=== PATIENT | female | born 1950 | race Caucasian/White ===

== ENCOUNTER → 2019-05-05 12:22 | Outpatient (CLI) | payer OTHER, SELFPAY ==
--- NOTE | 2019-05-05 | DI.MG.S_ITS ---
BILATERAL DIGITAL SCREENING MAMMOGRAM 3D/2D WITH CAD: 05/05/2019 CLINICAL: Routine screening. Comparison is made to exam dated: 01/14/2017 mammogram - [facility]. The tissue of both breasts is heterogeneously dense. This may lower the sensitivity of mammography. Current study was also evaluated with a Computer Aided Detection (CAD) system. There is a mole marker on the right breast. There are mole markers on the left breast. No significant masses, calcifications, or other findings are seen in either breast. There has been no significant interval change. IMPRESSION: NEGATIVE There is no mammographic evidence of malignancy. A 1 year screening mammogram is recommended. This exam was interpreted at Station ID: [id number]. NOTE: For mammograms, a report in lay terms will be sent to the patient. Approximately 15% of breast malignancies will not be visualized mammographically. In the management of a palpable breast mass, a negative mammogram must not discourage biopsy of a clinically suspicious lesion. Electronically Signed By: Warren russell/philip:05/08/2019 17:10:40 letter sent: Normal Exam ACR BI-RADS Category 1: Negative [id number]
== END ==
PROVIDERS: PCP Nurse Practitioner Family; Visit Provider Nurse Practitioner Family
DX: Z12.31 Encounter for screening mammogram for malignant neoplasm of breast (principal); M85.851 Other specified disorders of bone density and structure, right thigh
CPT/HCPCS: 77063; 77067; 77080

== ENCOUNTER → 2020-08-20 08:05 | Outpatient (CLI) | payer OTHER, SELFPAY ==
[2020-08-20] MEDS: COVID-19 VACC #1, MRNA(MOD) 100 MCG/0.5 ML VIAL IM (08:10)
== END ==
PROVIDERS: PCP Nurse Practitioner Family; Visit Provider Internal Medicine
DX: Z23 Encounter for immunization (principal)
CPT/HCPCS: 0011A; 91301

== ENCOUNTER → 2020-09-17 07:56 | Outpatient (CLI) | payer OTHER, SELFPAY ==
[2020-09-17] MEDS: COVID-19 VACC #2, MRNA(MOD) 100 MCG/0.5 ML VIAL IM (08:10)
== END ==
PROVIDERS: PCP Nurse Practitioner Family; Visit Provider Internal Medicine
DX: Z23 Encounter for immunization (principal)
CPT/HCPCS: 0012A; 91301

== ENCOUNTER → 2021-03-05 14:41 | Outpatient (CLI) | payer OTHER, SELFPAY ==
--- NOTE | 2021-03-05 | DI.RAD.S_ITS ---
PROCEDURE: XR HIP W PEL IF DONE RT 2V INDICATIONS: right hip pain TECHNIQUE: AP pelvis with lateral view(s) of the right hip(s). COMPARISON: None. FINDINGS: Bones: No fractures or dislocations. Mild to moderate degenerative change at the right hip. No avascular necrosis of the right femoral head. Mild degenerative change at the left hip. Pelvic ring appears intact. No suspicious bony lesions. Soft tissues: The visualized bowel gas pattern is normal. No suspicious soft tissue calcifications. IMPRESSION: [id number] degenerative change of the right hip. Dictated by: Jordan Fisher M.D. on 03/05/2021 at 15:07 Approved by: Jordan Fisher M.D. on 03/05/2021 at 15:08
== END ==
PROVIDERS: PCP Internal Medicine; Referring Provider Internal Medicine; Visit Provider Internal Medicine
DX: M25.551 Pain in right hip (principal)
CPT/HCPCS: 73502

== ENCOUNTER → 2022-04-09 10:40 | Outpatient (CLI) | payer MEDICARE, OTHER, SELFPAY | PROVIDERS: PCP Family Medicine; Referring Provider Physical Medicine & Rehabilitation; Visit Provider Physical Medicine & Rehabilitation | DX: M54.16 Radiculopathy, lumbar region (principal); Z53.20 Procedure and treatment not carried out because of patient's decision for unspecified reasons ==

== ENCOUNTER 2022-10-19 10:52 | Emergency (ER) | payer MEDICARE, OTHER, SELFPAY ==
[2022-10-19] VITALS (14 sets, daily range): BP systolic 129–190; BP diastolic 60–88; PULSE 56–84; RESP 11–35; TEMP 36.6; O2SAT 97–100; BMI 24.3
--- NOTE | 2022-10-19 11:06 | DI.RAD.S_ITS ---
PROCEDURE: XR CHEST 1V INDICATIONS: chest pain TECHNIQUE: One view of the chest was acquired. COMPARISON: None. FINDINGS: Surgical changes and devices: None. Lungs and pleura: Lungs are clear. No pleural effusions or pneumothorax. Mediastinum: Mediastinal contours appear normal. Heart size is normal. Bones and chest wall: No suspicious bony lesions. Overlying soft tissues appear unremarkable. IMPRESSION: No acute cardiopulmonary pathology. Dictated by: Walker Iraheta M.D. on 10/19/2022 at 11:44 Approved by: Walker Iraheta M.D. on 10/19/2022 at 11:44
[2022-10-19 11:47] LABS: Add Manual Diff / Slide Review NO; Basophils Absolute Auto 0 /uL (0-100); Basophils Percent Auto 0.5 % (0-2); Eosinophils Absolute Auto 100 /uL (0-450); Eosinophils Percent Auto 1.2 % (2-4); Hematocrit 43.7 % (36-46); Lymphocytes Absolute Auto 1500 /uL (1100-4500); Lymphocytes Percent Auto 25.3 % (25-40); Mean Corpuscular HGB Conc 34.3 % (30-36); Mean Corpuscular Hemoglobin 32.6 PG (26-34); Mean Corpuscular Volume 94.9 fL (80-100); Monocytes Absolute Auto 600 /uL (0-900); Monocytes Percent Auto 9.7 % (3-14); Neutrophils Absolute Auto 3700 /uL (1500-7000); Neutrophils Percent Auto 63.3 % (50-75); Platelet Count 208 X10^3/uL (150-400); Red Blood Cell Count 4.61 X10^6/uL (4.0-5.2); Red Cell Distribution Width 13.4 % (11.6-14.8); White Blood Cell Count 5.9 X10^3/uL (4.5-11.0)
[2022-10-19 11:57] LABS: PTT Partial Thromboplastin Tim 30 SECONDS (26-36)
[2022-10-19 12:01] LABS: Alanine Aminotransferase 26 IU/L (<35); Albumin 4.5 g/dL (3.5-5.0); Albumin Globulin Ratio 1.3 (1.0-2.8); Alkaline Phosphatase 149 U/L (38-126); Aspartate Aminotransferase 26 IU/L (14-36); BUN Creatinine Ratio 15.8 (6-22); Bilirubin Total 0.7 mg/dL (0.2-1.3); Blood Urea Nitrogen 15 mg/dL (7-17); Calcium 9.5 mg/dL (8.4-10.2); Carbon Dioxide 23 mmol/L (22-32); Chloride 107 mmol/L (98-107); Creatine Kinase 48 U/L (30-135); Estimated Glomerular Filt Rate > 60 mL/min (>60); Globulin 3.4 g/dL (1.7-4.1); Glucose 99 mg/dL (80-110); HEMOLYSIS < 15 (0-50); Lipase 147 U/L (23-300); Magnesium 1.9 mg/dL (1.6-2.3); Potassium 3.9 mmol/L (3.4-5.1); Sodium 140 mmol/L (137-145); Total Protein 7.9 g/dL (6.3-8.2)
[2022-10-19 12:05] LABS: COVID19 -Nasal RAPID Negative (Negative)
[2022-10-19 12:13] LABS: Troponin I < 0.012 ng/mL (0.01-0.034)
[2022-10-19 13:58] LABS: Troponin I < 0.012 ng/mL (0.01-0.034)
--- NOTE | 2022-10-19 14:01 | ED_ITS ---
HPI - Chest Pain General Chief Complaint: Chest Pain Stated Complaint: Chest pain, nausea,diaphoretic Time Seen by Provider: 10/19/22 14:01 Source: patient Mode of arrival: Ambulatory Limitations: no limitations History of Present Illness HPI narrative: This is a 71-year-old female with history of migraines on oral HRT, asthma who stopped her Flovent about a month ago. Patient states she saw her doctor last week because she went for a 2 mi walk and all of her muscles were sore afterwards. She states that she felt fine during the walk she states they did an EKG they saw something that looked different and ordered an echo. She notes that she did go to [place] for a month she flew back during her time in [place] she had a viral symptoms with nausea vomiting diarrhea for 3 days and then developed a chest cold some sinus drainage which has all since resolved. She states in the last 1-2 days she is had a sensation of burning pain across her chest and off her neck with nausea and feeling hot and flushed. Seems to be worse when she goes to bed she is wakes up with symptoms she states sometimes it happens d uring the day. It is not associated with exertion, she states it seems to be more when she is lying flat or resting. She does not take niacin. It is only been for the last 5 days. She does not feel short of breath with these episodes. She does get nausea she has not had vomiting she is felt no syncope. No diarrhea no constipation, no urinary symptoms no swelling. Related Data Home Medications Medication Instructions Recorded Confirmed fluticasone propionate 100 1 inh inhalation BID 09/30/21 09/30/21 mcg/actuation blister powder for inhalation (Flovent Diskus) Previous Rx's Medication Instructions Recorded diltiazem HCl 120 mg 120 mg PO DAILY #30 caps 10/19/22 capsule,extended release 24 hr (Cardizem CD) Allergies Allergy/AdvReac Type Severity Reaction Status Date / Time No Known Drug Allergies Allergy Unverified 09/30/21 09:15 Review of Systems Review of Systems ROS Unobtainable: All systems reviewed & are unremarkable except as noted in HPI and below Patient History Social History Smoking Status: Never smoker Smoking Status: Never smoker Exam Narrative Exam Narrative: GENERAL: Alert and oriented x three, mild distress. HEENT: Head normocephalic, atraumatic, EOMI, pupils reactive, face symmetric, moist mucous membranes NECK: Supple, full range of motion CARDIOVASCULAR: Regular rate and rhythm without murmurs, rubs or gallops. RESPIRATORY: Breath sounds equal bilaterally, no wheezes rales or rhonchi. ABDOMEN: Soft, nontender. Normoactive bowel sounds all 4 quadrants. No guarding or rebound, rigidity, no mass : No CVA tenderness EXTREMITIES: Normal range of motion, no clubbing or edema. Neurovascularly intact NEUROLOGICAL: Cranial nerves II through XII grossly intact. Moving all extremities SKIN: Warm, dry, no petechiae, no rashes or lesions. Initial Vital Signs Initial Vital Signs: Vital Signs Temperature 97.9 F 10/19/22 11:04 Pulse Rate 70 10/19/22 11:04 Respiratory Rate 16 10/19/22 11:04 Blood Pressure 190/88 H 10/19/22 11:04 Pulse Oximetry 97 10/19/22 11:04 Oxygen Delivery Method Room Air 10/19/22 11:04 Scores CHADS-VASc Congestive heart failure: no Hypertension: no Age 75 years or older: no Diabetes mellitus: no Stroke, TIA, or TE: no Vascular disease: no Age 65 to 74 years: yes Sex category (female): Female CHADS-VASc Score: 2 PERC Score Age greater than or equal to 50 years: Yes Heart rate greater than or equal to 100 bpm: No Room Air O2 Sat less than 95%: No Unilateral leg swelling: No Recent trauma or surgery: No Hemoptysis: No Prior PE or DVT: No Hormone Use: Yes Total PERC Score: 2 Course Orders Ordered: ED Orders 10/19/22 11:06 XR chest 1V Stat EKG-12 Lead Stat 10/19/22 11:30 Complete Blood Count AUTO DIFF Stat Comprehensive Metabolic Panel Stat Lipase Stat Magnesium Stat PTT Partial Thromboplastin Andrey Stat Prothrombin Time INR Stat Troponin & CK Cardiac Panel Stat 10/19/22 11:40 COVID19 -Nasal RAPID Stat 10/19/22 13:16 EKG-12 Lead Stat 10/19/22 13:30 Trop I [Troponin I] Stat 10/19/22 14:30 CT angio chest PE protocol Stat Discontinued Medications Aspirin (Aspirin 81 Mg Chew Tab) 324 mg PO NOW ONE Stop: 10/19/22 11:07 Last Admin: 10/19/22 12:17 Dose: Not Given Documented By: JORGE Aspirin (Aspirin 81 Mg Chew Tab) 324 mg PO NOW ONE Stop: 10/19/22 16:17 Last Admin: 10/19/22 16:27 Dose: 324 mg Documented By: JORGE Vital Signs Vital signs: Vital Signs - 8 hr 10/19/22 11:04 10/19/22 11:36 10/19/22 11:40 Temperature 97.9 F Pulse Rate 70 80 Respiratory Rate 16 Blood Pressure 190/88 H 176/74 H Pulse Oximetry 97 Oxygen Delivery Method Room Air 10/19/22 11:40 10/19/22 12:00 10/19/22 12:01 Temperature Pulse Rate 66 68 Respiratory Rate 35 H 25 H Blood Pressure 129/60 Pulse Oximetry 100 100 Oxygen Delivery Method 10/19/22 12:01 10/19/22 13:56 10/19/22 13:57 Temperature Pulse Rate 65 84 Respiratory Rate 25 H 23 Blood Pressure 137/62 Pulse Oximetry 100 100 Oxygen Delivery Method 10/19/22 13:57 10/19/22 14:00 10/19/22 14:00 Temperature Pulse Rate 70 56 L Respiratory Rate 15 12 Blood Pressure 134/63 Pulse Oximetry 100 100 Oxygen Delivery Method 10/19/22 14:30 10/19/22 14:31 10/19/22 15:00 Temperature Pulse Rate 69 65 83 Respiratory Rate 24 30 H 30 H Blood Pressure Pulse Oximetry 100 100 100 Oxygen Delivery Method 10/19/22 15:01 10/19/22 15:01 10/19/22 15:30 Temperature Pulse Rate 73 Respiratory Rate 11 L Blood Pressure 137/66 137/65 Pulse Oximetry 100 Oxygen Delivery Method 10/19/22 15:30 10/19/22 16:00 10/19/22 16:00 Temperature Pulse Rate 75 78 Respiratory Rate 34 H Blood Pressure 143/71 H Pulse Oximetry 100 100 Oxygen Delivery Method MDM - Chest Pain Lab Data 10/19/22 11:30 10/19/22 11:30 Labs: Lab Results 10/19/22 10/19/22 10/19/22 Range/Units 11:30 11:30 11:30 WBC 5.9 (4.5-11.0) X10^3/uL RBC 4.61 (4.0-5.2) X10^6/uL Hgb 15.0 (12.0-16.0) g/dL Hct 43.7 (36-46) % MCV 94.9 (80-100) fL MCH 32.6 (26-34) PG MCHC 34.3 (30-36) % RDW 13.4 (11.6-14.8) % Plt Count 208 (150-400) X10^3/uL Neut % (Auto) 63.3 (50-75) % Lymph % (Auto) 25.3 (25-40) % Beau[place] % (Auto) 9.7 (3-14) % Eos % (Auto) 1.2 L (2-4) % Baso % (Auto) 0.5 (0-2) % Neut # (Auto) 3700 (5758-3855) /uL Lymph # (Auto) 1500 (0127-1426) /uL [place] # (Auto) 600 (0-900) /uL Eos # (Auto) 100 (0-450) /uL Baso # (Auto) 0 (0-100) /uL PT 12.0 (10.1-12.7) SECONDS INR 1.0 (0.9-1.3) APTT 30 (26-36) SECONDS Sodium 140 (137-145) mmol/L Potassium 3.9 (3.4-5.1) mmol/L Chloride 107 (98-107) mmol/L Carbon Dioxide 23 (22-32) mmol/L BUN 15 (7-17) mg/dL Creatinine 0.95 (0.52-1.04) mg/dL Estimated GFR > 60 (>60) mL/min BUN/Creatinine Ratio 15.8 (6-22) Glucose 99 (80-110) mg/dL Calcium 9.5 (8.4-10.2) mg/dL Magnesium 1.9 (1.6-2.3) mg/dL Total Bilirubin 0.7 (0.2-1.3) mg/dL AST 26 (14-36) IU/L ALT 26 (<35) IU/L Alkaline Phosphatase 149 H (38-126) U/L Total Creatine Kinase 48 (30-135) U/L CK-MB (CK-2) TNP CK-MB (CK-2) Rel Index TNP Troponin I < 0.012 (0.01-0.034) ng/mL Total Protein 7.9 (6.3-8.2) g/dL Albumin 4.5 (3.5-5.0) g/dL Globulin 3.4 (1.7-4.1) g/dL Albumin/Globulin Ratio 1.3 (1.0-2.8) Lipase 147 (23-300) U/L SARS-CoV-2 (PCR) (Negative) 10/19/22 10/19/22 Range/Units 11:40 13:30 WBC (4.5-11.0) X10^3/uL RBC (4.0-5.2) X10^6/uL Hgb (12.0-16.0) g/dL Hct (36-46) % MCV (80-100) fL MCH (26-34) PG MCHC (30-36) % RDW (11.6-14.8) % Plt Count (150-400) X10^3/uL Neut % (Auto) (50-75) % Lymph % (Auto) (25-40) % Beaufort % (Auto) (3-14) % Eos % (Auto) (2-4) % Baso % (Auto) (0-2) % Neut # (Auto) (2470-0843) /uL Lymph # (Auto) (7399-8263) /uL Beau[place] # (Auto) (0-900) /uL Eos # (Auto) (0-450) /uL Baso # (Auto) (0-100) /uL PT (10.1-12.7) SECONDS INR (0.9-1.3) APTT (26-36) SECONDS Sodium (137-145) mmol/L Potassium (3.4-5.1) mmol/L Chloride (98-107) mmol/L Carbon Dioxide (22-32) mmol/L BUN (7-17) mg/dL Creatinine (0.52-1.04) mg/dL Estimated GFR (>60) mL/min BUN/Creatinine Ratio (6-22) Glucose (80-110) mg/dL Calcium (8.4-10.2) mg/dL Magnesium (1.6-2.3) mg/dL Total Bilirubin (0.2-1.3) mg/dL AST (14-36) IU/L ALT (<35) IU/L Alkaline Phosphatase (38-126) U/L Total Creatine Kinase (30-135) U/L CK-MB (CK-2) CK-MB (CK-2) Rel Index Troponin I < 0.012 (0.01-0.034) ng/mL Total Protein (6.3-8.2) g/dL Albumin (3.5-5.0) g/dL Globulin (1.7-4.1) g/dL Albumin/Globulin Ratio (1.0-2.8) Lipase (23-300) U/L SARS-CoV-2 (PCR) Negative (Negative) Urine Dip Bedside Urine Glucose Negative Bedside Urine Bilirubin - Negative Bedside Urine Ketone - Negative Urine Specific Dighton 1.010 Bedside Urine Occult Blood - Negative Bedside Urine pH 6.0 Bedside Urine Protein - Negative Bedside Urine Urobilinogen - Negative Bedside Urine Nitrite - Negative Bedside Urine Leukocytes - Negative Esterase Imaging Data Chest x-ray: Radiologist's Impression: [address] [address] XRay Report Signed Patient: Tona Conti MR#: [id number] : 1950 Acct:[id number] Age/Sex: 71 / F Date of Service: 10/19/22 Loc: ED Accession Number: [id number] ?? Procedure: XR chest 1V Ordering Provider: Marry Castro D.O. PROCEDURE:? XR CHEST 1V ? INDICATIONS:? chest pain ? TECHNIQUE:? One view of the chest was acquired.? ? COMPARISON:? None. ? FINDINGS:? ? Surgical changes and devices:? None.? ? Lungs and pleura:? Lungs are clear.? No pleural effusions or pneumothorax.? ? Mediastinum:? Mediastinal contours appear normal.? Heart size is normal.? ? Bones and chest wall:? No suspicious bony lesions.? Overlying soft tissues ap pear unremarkable.? ? IMPRESSION:? No acute cardiopulmonary pathology. ? ? Dictated by: Walker Iraheta M.D. on 10/19/2022 at 11:44 ? ? Approved by: Walker Iraheta M.D. on 10/19/2022 at 11:44?? CT scan - chest: Radiologist's Impression: Close Chest CTA (Signed) Juno Alcala - 10/19/22 Chest X-Ray (Signed) Walker Iraheta - 10/19/22 Launch?[address] [address] [address] Scan Report Signed Patient: Tona Conti MR#: [id number] : 1950 Acct:[id number] Age/Sex: 71 / F Date of Service: 10/19/22 Loc: ED Accession Number: [id number] ?? Procedure: CT angio chest PE protocol Ordering Provider: Marry Castro D.O. PROCEDURE:? CT ANGIO CHEST PE PROTOCOL ? INDICATIONS:? chest pain intermittent, flew to [place] on HRT ? TECHNIQUE:? After the administration of intravenous contrast, 2 mm thick sections acquired from the pulmonary apices to the posterior costophrenic angles.? 3-dimensional maximum intensity projection (MIP) coronal and sagittal reformats were then acquired through the thorax.? For radiation dose reduction, the following was used:? automated exposure control, adjustment of mA and/or kV according to patient size.? ? COMPARISON:? None. ? FINDINGS:? Image quality:? Excellent.? ? Pulmonary arteries:? Pulmonary arteries are normal in size, and demonstrate no intraluminal filling defects to suggest central pulmonary embolism.? ? Lungs and pleura:? Lungs are clear.? No pleural effusions or pneumothorax.? Central and peripheral airways are patent.? ? Mediastinum:? Heart size is normal, without pericardial effusion.? No mediastinal or hilar adenopathy.? Thoracic aorta is normal in caliber and enhancement.? Esophagus is normal in caliber, without hiatal hernia.? ? Bones and chest wall:? No suspicious bony lesions.? Ribs and thoracic spine a ppear intact throughout.? Thyroid gland is unremarkable.? No axillary or supraclavicular adenopathy.? ? Abdomen:? Visualized upper abdominal solid organs appear normal in the early arterial phase of enhancement.? ? IMPRESSION:? ? 1. No evidence acute pulmonary emboli. ? 2. No evidence acute pulmonary process.? ? ? Dictated by: Juno Alcala M.D. on 10/19/2022 at 15:23 ? ? Approved by: Juno Alcala M.D. on 10/19/2022 at 15:26?? ECG Data Attestation: I personally reviewed and interpreted this ECG as follows: Prior ECG tracings: not available for review Interpretation: Sinus rhythm premature atrial complexes rate 80 VT 152 QRS is 62, QTC 435. Nonspecific. EKG 2. Sinus rhythm rate of 60 2p are 148 QRS of [address]TC [address] No acute ST elevation depression noted. Nonspecific change. Patient was noted to have a rhythm change on monitor repeat EKG shows AFib with a rate of 77 QRS is 64 QTC of 420. MDM Narrative Medical decision making narrative: 71-year-old female who comes in with complaint of chest burning and nausea intermittently seems to happen more when she is sleeping and resting and not with exertion. Patient did stop her Flovent a month before but did not seem to be the initial cause of her symptoms she has had long distance travel she is on oral hormone replacement therapy, she did have a viral illness while traveling but would make me concern for pulmonary emboli. Cardiac workup thus shows no acute clear causes troponins negative x2, labs including CBC, coags CMP are negative alk-phos slightly elevated 149. COVID negative, chest x-ray negative. Discussed with patient D-dimer may be elevated secondary to age and would still require CT angio she is high enough risk that I feel she is appropriate for CT and patient is agreeable. Imaging is negative for pulmonary process or pulmonary emboli. If CT is negative recommend patient follow up for her echo and discussed stress testing patient flipped atrial fibrillation 30 EKG shows patient is in AFib at this time. She has asymptomatic currently she is rate controlled. Discussed will start a blood thinner her chads Vasc is 2 she does note she had a possible stroke in her eye and her 50s and we discussed stronger thinners such as DOACs or coumadin. Patient prefers to start with aspirin have some time to con template anti meet with cardiology and her primary care physician before taking a stronger anticoagulant. Discussed cardioversion but unclear if she feels when she flips in atrial fibrillation so will hold off on this as she may have been in and out of AFib for a longer. I have to highest stroke risk for cardioversion in the department. Discussed low-dose beta-meme or calcium channel meme. Patient has had both of these for migraines in the past she states they were not well tolerated but she is open to a prescription so she has persistent symptoms or feel like her heart rate is fast she can start it. She already has cardiology follow-up set up, she is given a copy of her EKG today, she has echo ordered patient is felt safe for discharge at this time. We discussed return precautions. Discharge Plan Departure Patient Disposition: Home Clinical Impression: Atypical chest pain, Atrial fibrillation Instructions: DI for Atypical Chest Pain Activity Restrictions/Additional Instructions: You are found to be in atrial fibrillation today. As discussed at least take a daily aspirin, discussed with your physician about stronger anticoagulation with your history you may be a candidate for stroke prevention. Take your EKG with you from today to your appointment with Cardiology. Please keep your appointment for your echo and further workup and they will discuss about further workup with you. There is a dose of low-dose diltiazem that you can take once daily to prevent at rial fibrillation with a fast heart rate. Prescription sent to [facility] in [place]. If you have recurrent or worsening symptoms please return if you are having new chest pain, shortness of breath, lightheadedness or passing out, diaphoresis or sweatiness, new swelling in her extremities, persistent vomiting or nausea or other new or concerning changes. Prescriptions: New diltiazem HCl [Cardizem CD] 120 mg capsule,extended release 24hr 120 mg PO DAILY Qty: 30 0RF No Action Flovent Diskus 100 mcg/actuation blister with device 1 inh inhalation BID Referrals: Stas Arnold MD [Primary Care Provider] - Stand Alone Forms: Patient Portal/API
--- NOTE | 2022-10-19 14:30 | DI.CT.S_ITS ---
PROCEDURE: CT ANGIO CHEST PE PROTOCOL INDICATIONS: chest pain intermittent, flew to [place] on HRT TECHNIQUE: After the administration of intravenous contrast, 2 mm thick sections acquired from the pulmonary apices to the posterior costophrenic angles. 3-dimensional maximum intensity projection (MIP) coronal and sagittal reformats were then acquired through the thorax. For radiation dose reduction, the following was used: automated exposure control, adjustment of mA and/or kV according to patient size. COMPARISON: None. FINDINGS: Image quality: Excellent. Pulmonary arteries: Pulmonary arteries are normal in size, and demonstrate no intraluminal filling defects to suggest central pulmonary embolism. Lungs and pleura: Lungs are clear. No pleural effusions or pneumothorax. Central and peripheral airways are patent. Mediastinum: Heart size is normal, without pericardial effusion. No mediastinal or hilar adenopathy. Thoracic aorta is normal in caliber and enhancement. Esophagus is normal in caliber, without hiatal hernia. Bones and chest wall: No suspicious bony lesions. Ribs and thoracic spine appear intact throughout. Thyroid gland is unremarkable. No axillary or supraclavicular adenopathy. Abdomen: Visualized upper abdominal solid organs appear normal in the early arterial phase of enhancement. IMPRESSION: 1. No evidence acute pulmonary emboli. 2. No evidence acute pulmonary process. Dictated by: Juno Alcala M.D. on 10/19/2022 at 15:23 Approved by: Juno Alcala M.D. on 10/19/2022 at 15:26
[2022-10-19] MEDS: ASPIRIN 81 MG CHEW TAB 324 MG PO (16:27)
== END 2022-10-19 16:33 | disposition home or self-care (01) ==
PROVIDERS: Emergency Provider Emergency Medicine; PCP Family Medicine
DX: R07.9 Chest pain, unspecified (principal); I48.91 Unspecified atrial fibrillation; Z20.822 Contact with and (suspected) exposure to COVID-19
CPT/HCPCS: 36415; 71045; 71275; 80053; 81003; 82550; 83690; 83735; 84484; 85025; 85610; 85730; 87635; 93005; 99284; C9803

== ENCOUNTER → 2022-10-21 07:46 | Outpatient (CLI) | payer MEDICARE, OTHER, SELFPAY ==
--- NOTE | 2022-10-21 | DI.ECHO.S_ITS ---
[place] [facility]---------[facility] +---------+ : : [address] : : : : [id number] : : : : Phone: [phone]+ Echocardiogram Report + + :Name: OTONIEL MORENO Study Date: 10/21/2022 Height: 67 in : :[facility] ReadingLocation: Weight: 150 lb : : Gender: Female BSA: 1.8 m2 : :: 1950 Age: 71 yrs BP: 144/80 mmHg: :Reason For Study: CARDIAC ARRHYTHMIA : :Ordering Physician: TAB, : :ANDRA Performed By: Debby Crisostomo : :Referring: ANDRA CORTEZ : + + Interpretation Summary 1) Normal left ventricular thickness, size, wall motion, and systolic function (EF 60-65%). 2) The right ventricle is mildly dilated. The right ventricular systolic function is normal. 3) There is mild to moderate aortic regurgitation. 4) No prior Echo available for comparison. Procedure: A two-dimensional transthoracic echocardiogram with color flow and Doppler was performed. The study quality was technically adequate. There is no prior echocardiogram noted for this patient. The heart rate ranged between 59-71 bpm during the study. Left Ventricle: The left ventricle is normal in size and wall thickness. The ejection fraction is estimated to be 60-65%. Left ventricular systolic function appears normal without focal wall motion abnormalities. Diastolic parameters suggest a relaxation abnormality of the left ventricle, consistent with probable normal filling pressures. Right Ventricle: The right ventricle is mildly dilated. The right ventricular systolic function is normal. Atria: The left atrial size is normal. Right atrial size is normal. There is no Doppler evidence for an interatrial shunt. Mitral Valve: The mitral valve is normal in structure and function. There is mild mitral regurgitation. Aortic Valve: The aortic valve is trileaflet. The aortic valve opens well. There is no aortic valve stenosis. There is mild to moderate aortic regurgitation. Tricuspid Valve: The tricuspid valve is normal in structure and function. There is mild tricuspid regurgitation. The right ventricular systolic pressure is estimated to be at least 29 mmHg based on an estimated right atrial pressure of 3 mm Hg. Pulmonic Valve: The pulmonic valve leaflets are thin and pliable; valve motion is normal. There is mild pulmonic regurgitation. Great Vessels: The aortic root is normal size. The dimensions of the ascending aorta are normal. The IVC is of normal diameter and collapses greater than 50% with a sniff. This suggests a low right atrial pressure of 3 mm Hg. Pericardium/ Pleura There is no pericardial effusion. There is no pleural effusion. MMode/2D Measurements & Calculations LVIDd: 4.1 cm LVOT diam: 1.9 cm LVIDs: 2.7 cm Ao root diam: 3.0 cm FS: 34.3 % asc Aorta Diam: 3.2 cm IVSd: 0.68 cm Ao Arch Diam (Prox Trans): 2.7 cm LVPWd: 0.73 cm LV gomez. diameter/BSA (cm/m^2): 2.3 LV sys. diameter/BSA (cm/m^2): 1.5 LA A2 area: 18.5 cm2 RA long axis: 5.2 cm LA A4 area: 17.4 cm2 RA area: 19.0 cm2 LA length (vol): 5.1 cm RA vol: 58.3 ml LA vol: 53.3 ml RA : 32.6 ml/m2 LA vol index: 29.8 ml/m2 IVC diam: 1.8 cm RVD1 (basal): 4.1 cm RVD2 (mid): 3.1 cm TAPSE: 1.8 cm Doppler Measurements & Calculations Ao V2 max: 118.5 cm/sec LVOT Max Alek: 106.2 cm/sec Ao V2 mean: 77.0 cm/sec LV V1 max P.5 mmHg Ao max P.6 mmHg LV V1 VTI: 25.5 cm Ao mean P.7 mmHg CHIDI(I,D): 2.8 cm2 Ao V2 VTI: 27.0 cm CHIDI(V,D): 2.7 cm2 sev ratio: 0.95 CHIDI indexed to BSA (cm^2/m^2): 1.6 MV E max alek: 82.2 cm/sec TR max alek: 253.3 cm/sec MV A max alek: 43.1 cm/sec TR max P.7 mmHg MV E/A: 1.9 PA V2 max: 107.3 cm/sec Med Peak E' Alek: 10.6 cm/sec PA V2 mean: 75.4 cm/sec E/E' med: 7.8 PA mean P.6 mmHg Lat Peak E' Alek: 12.0 cm/sec PA pr(Accel): 32.8 mmHg E/E' lat: 6.8 E/e' average: 7.3 MV dec time: 0.20 sec SV(LVOT): 75.9 ml Reading Physician:10:24 AM
== END ==
PROVIDERS: PCP Family Medicine; Referring Provider Internal Medicine Cardiovascular Disease; Visit Provider Internal Medicine Cardiovascular Disease
DX: I08.3 Combined rheumatic disorders of mitral, aortic and tricuspid valves (principal); I49.9 Cardiac arrhythmia, unspecified
CPT/HCPCS: 93306

== ENCOUNTER 2022-10-23 09:33 | Emergency (ER) | payer MEDICARE, OTHER, SELFPAY ==
[2022-10-23 09:41] VITALS: BP 178/78; PULSE 77; O2SAT 100
[2022-10-23 09:42] VITALS: BP 178/78; PULSE 79; RESP 17; TEMP 36.8; O2SAT 99; BMI 23.5
--- NOTE | 2022-10-23 09:43 | DI.RAD.S_ITS ---
PROCEDURE: XR CHEST 1V INDICATIONS: chest pain TECHNIQUE: One view of the chest was acquired. COMPARISON: [facility], CR, XR CHEST 1V, 10/19/2022, 11:26. FINDINGS: Surgical changes and devices: None. Lungs and pleura: Lungs are clear. No pleural effusions or pneumothorax. Mediastinum: Mediastinal contours appear normal. Heart size is normal. Bones and chest wall: No suspicious bony lesions. Overlying soft tissues appear unremarkable. IMPRESSION: No acute pulmonary process. Dictated by: Michelle Leo M.D. on 10/23/2022 at 10:52 Approved by: Michelle Leo M.D. on 10/23/2022 at 10:52
[2022-10-23 09:56] LABS: Add Manual Diff / Slide Review NO; Basophils Absolute Auto 100 /uL (0-100); Eosinophils Absolute Auto 100 /uL (0-450); Eosinophils Percent Auto 1.8 % (2-4); Hematocrit 44.3 % (36-46); Hemoglobin 14.9 g/dL (12.0-16.0); Lymphocytes Absolute Auto 1600 /uL (1100-4500); Lymphocytes Percent Auto 29.8 % (25-40); Mean Corpuscular HGB Conc 33.7 % (30-36); Mean Corpuscular Hemoglobin 31.9 PG (26-34); Mean Corpuscular Volume 94.5 fL (80-100); Monocytes Absolute Auto 300 /uL (0-900); Monocytes Percent Auto 6.1 % (3-14); Neutrophils Absolute Auto 3300 /uL (1500-7000); Neutrophils Percent Auto 61.3 % (50-75); Platelet Count 212 X10^3/uL (150-400); Red Blood Cell Count 4.69 X10^6/uL (4.0-5.2); Red Cell Distribution Width 13.6 % (11.6-14.8); White Blood Cell Count 5.4 X10^3/uL (4.5-11.0)
[2022-10-23 10:00] VITALS: BP 158/68; PULSE 67; RESP 14; O2SAT 100
[2022-10-23 10:01] LABS: Prothrombin Time 11.9 SECONDS (10.1-12.7)
[2022-10-23 10:03] LABS: PTT Partial Thromboplastin Tim 29 SECONDS (26-36)
[2022-10-23 10:08] LABS: Alanine Aminotransferase 34 IU/L (<35); Albumin 4.4 g/dL (3.5-5.0); Albumin Globulin Ratio 1.3 (1.0-2.8); Alkaline Phosphatase 104 U/L (38-126); Aspartate Aminotransferase 29 IU/L (14-36); BUN Creatinine Ratio 15.7 (6-22); Bilirubin Total 0.7 mg/dL (0.2-1.3); Blood Urea Nitrogen 14 mg/dL (7-17); Calcium 9.5 mg/dL (8.4-10.2); Carbon Dioxide 21 mmol/L (22-32); Chloride 108 mmol/L (98-107); Creatine Kinase 44 U/L (30-135); Estimated Glomerular Filt Rate > 60 mL/min (>60); Globulin 3.3 g/dL (1.7-4.1); Glucose 143 mg/dL (80-110); HEMOLYSIS 15 (0-50); Lipase 105 U/L (23-300); Magnesium 1.9 mg/dL (1.6-2.3); Potassium 3.6 mmol/L (3.4-5.1); Sodium 140 mmol/L (137-145); Total Protein 7.7 g/dL (6.3-8.2)
[2022-10-23 10:14] LABS: COVID19 -Nasal RAPID Negative (Negative)
[2022-10-23 10:19] LABS: Troponin I < 0.012 ng/mL (0.01-0.034)
[2022-10-23 10:30] VITALS: BP 148/67; PULSE 68; RESP 22; O2SAT 100
--- NOTE | 2022-10-23 10:30 | ED.ARRPALP ---
HPI - Arrhythmia/Palpitations General Chief Complaint: Arrhythmia/Palpitations Stated Complaint: AFIB since Wednesday getting worse Time Seen by Provider: 10/23/22 10:29 Source: patient Mode of arrival: Ambulatory History of Present Illness HPI narrative: Patient 71 year old female recently diagnosed with atrial fibrillation this week she was in the emergency department she had a CT angio, she had an echocardiogram which showed an EF of 60-65% she has been feeling her heart pounding some burning in her chest. She reports that she feels it mostly at night. She has on her phone which does say that she is in AFib she felt it again this morning. She was started on diltiazem 120 extended relief she has chads Vasc score of 2 and was started on aspirin. She is extremely anxious she is not been sleeping she is not been taking Xanax. She denies any fever or chills. Her pain is not any worse. She just wanted to come and get checked out. She reports that whenever she feels this at night her heart rate is in the 70s. It does not sound like it is ever in AFib with RVR. She has not passed out. She is no numbness tingling or weakness. Related Data Home Medications Medication Instructions Recorded Confirmed fluticasone propionate 100 1 inh inhalation BID 09/30/21 10/23/22 mcg/actuation blister powder for inhalation (Flovent Diskus) estradiol 0.01% (0.1 mg/gram) 1 g vaginal 10/23/22 vaginal cream estradiol 2 mg (7.5 mcg/24 hour) 1 vaginal 10/23/22 vaginal ring (Estring) Previous Rx's Medication Instructions Recorded diltiazem HCl 120 mg 120 mg PO DAILY #30 caps 10/19/22 capsule,extended release 24 hr (Cardizem CD) Allergies Allergy/AdvReac Type Severity Reaction Status Date / Time No Known Drug Allergies Allergy Verified 10/23/22 09:47 Review of Systems Review of Systems ROS Unobtainable: All systems reviewed & are unremarkable except as noted in HPI and below Patient History Social History Smoking Status: Never smoker Smoking Status: Never smoker alcohol intake frequency: other Substance Use Type: does not use Exam Initial Vital Signs Initial Vital Signs: Vital Signs Pulse Rate 77 10/23/22 09:41 Blood Pressure 178/78 H 10/23/22 09:41 Pulse Oximetry 100 10/23/22 09:41 GENERAL: Alert anxious 71-year-old female and in [no acute] distress. HEENT: Head atraumatic,EOMI, pupils reactive, face symmetric, [moist] mucous membranes CARDIOVASCULAR: Regular rate and rhythm without murmurs, rubs or gallops. RESPIRATORY: Breath sounds equal bilaterally, no wheezes rales or rhonchi. ABDOMEN: Soft, nontender. Normoactive bowel sounds all 4 quadrants. No guarding or rebound. EXTREMITIES: Normal range of motion, no clubbing or edema. Neurovascularly intact NEUROLOGICAL: Alert and oriented x4.Normal gait and speech. SKIN: Warm, dry, no laceration, no petechiae, no rashes or lesions. Course Orders Ordered: ED Orders 10/23/22 09:43 XR chest 1V Stat EKG-12 Lead Stat 10/23/22 09:45 Complete Blood Count AUTO DIFF Stat Comprehensive Metabolic Panel Stat Lipase Stat Magnesium Stat PTT Partial Thromboplastin Andrey Stat Prothrombin Time INR Stat Troponin & CK Cardiac Panel Stat 10/23/22 09:57 COVID19 -Nasal RAPID Stat Vital Signs Vital signs: Vital Signs - 8 hr 10/23/22 09:42 10/23/22 09:41 10/23/22 09:41 Temperature 98.2 F Pulse Rate 79 77 Respiratory Rate 17 Blood Pressure 178/78 H 178/78 H Pulse Oximetry 99 100 Oxygen Delivery Method Room Air 10/23/22 10:00 10/23/22 10:00 Temperature Pulse Rate 67 Respiratory Rate 14 Blood Pressure 158/68 H Pulse Oximetry 100 Oxygen Delivery Method Room Air MDM - Arrhythmia/Palpitations Lab Data 10/23/22 09:45 10/23/22 09:45 Labs: Lab Results 10/23/22 10/23/22 10/23/22 Range/Units 09:45 09:45 09:45 WBC 5.4 (4.5-11.0) X10^3/uL RBC 4.69 (4.0-5.2) X10^6/uL Hgb 14.9 (12.0-16.0) g/dL Hct 44.3 (36-46) % MCV 94.5 (80-100) fL MCH 31.9 (26-34) PG MCHC 33.7 (30-36) % RDW 13.6 (11.6-14.8) % Plt Count 212 (150-400) X10^3/uL Neut % (Auto) 61.3 (50-75) % Lymph % (Auto) 29.8 (25-40) % [place] % (Auto) 6.1 (3-14) % Eos % (Auto) 1.8 L (2-4) % Baso % (Auto) 1.0 (0-2) % Neut # (Auto) 3300 (9564-0971) /uL Lymph # (Auto) 1600 (7245-7261) /uL [place] # (Auto) 300 (0-900) /uL Eos # (Auto) 100 (0-450) /uL Baso # (Auto) 100 (0-100) /uL PT 11.9 (10.1-12.7) SECONDS INR 1.0 (0.9-1.3) APTT 29 (26-36) SECONDS Sodium 140 (137-145) mmol/L Potassium 3.6 (3.4-5.1) mmol/L Chloride 108 H (98-107) mmol/L Carbon Dioxide 21 L (22-32) mmol/L BUN 14 (7-17) mg/dL Creatinine 0.89 (0.52-1.04) mg/dL Estimated GFR > 60 (>60) mL/min BUN/Creatinine Ratio 15.7 (6-22) Glucose 143 H (80-110) mg/dL Calcium 9.5 (8.4-10.2) mg/dL Magnesium 1.9 (1.6-2.3) mg/dL Total Bilirubin 0.7 (0.2-1.3) mg/dL AST 29 (14-36) IU/L ALT 34 (<35) IU/L Alkaline Phosphatase 104 (38-126) U/L Total Creatine Kinase 44 (30-135) U/L CK-MB (CK-2) TNP CK-MB (CK-2) Rel Index TNP Troponin I < 0.012 (0.01-0.034) ng/mL Total Protein 7.7 (6.3-8.2) g/dL Albumin 4.4 (3.5-5.0) g/dL Globulin 3.3 (1.7-4.1) g/dL Albumin/Globulin Ratio 1.3 (1.0-2.8) Lipase 105 (23-300) U/L SARS-CoV-2 (PCR) (Negative) 10/23/22 Range/Units 09:57 WBC (4.5-11.0) X10^3/uL RBC (4.0-5.2) X10^6/uL Hgb (12.0-16.0) g/dL Hct (36-46) % MCV (80-100) fL MCH (26-34) PG MCHC (30-36) % RDW (11.6-14.8) % Plt Count (150-400) X10^3/uL Neut % (Auto) (50-75) % Lymph % (Auto) (25-40) % [place] % (Auto) (3-14) % Eos % (Auto) (2-4) % Baso % (Auto) (0-2) % Neut # (Auto) (5293-4192) /uL Lymph # (Auto) (4622-2942) /uL [place] # (Auto) (0-900) /uL Eos # (Auto) (0-450) /uL Baso # (Auto) (0-100) /uL PT (10.1-12.7) SECONDS INR (0.9-1.3) APTT (26-36) SECONDS Sodium (137-145) mmol/L Potassium (3.4-5.1) mmol/L Chloride (98-107) mmol/L Carbon Dioxide (22-32) mmol/L BUN (7-17) mg/dL Creatinine (0.52-1.04) mg/dL Estimated GFR (>60) mL/min BUN/Creatinine Ratio (6-22) Glucose (80-110) mg/dL Calcium (8.4-10.2) mg/dL Magnesium (1.6-2.3) mg/dL Total Bilirubin (0.2-1.3) mg/dL AST (14-36) IU/L ALT (<35) IU/L Alkaline Phosphatase (38-126) U/L Total Creatine Kinase (30-135) U/L CK-MB (CK-2) CK-MB (CK-2) Rel Index Troponin I (0.01-0.034) ng/mL Total Protein (6.3-8.2) g/dL Albumin (3.5-5.0) g/dL Globulin (1.7-4.1) g/dL Albumin/Globulin Ratio (1.0-2.8) Lipase (23-300) U/L SARS-CoV-2 (PCR) Negative (Negative) ECG Data Interpretation: Sinus rhythm rate 78 FL interval 158 QRS 68 QTC 433 PACs noted previous EKG does show an atrial flutter and prior EKG shows a sinus rhythm MDM Narrative Medical decision making narrative: Patient has a sinus rhythm with PACs now blood work today is again reassuring. Sounds as though her rate is controlled in the 70s she is extremely chest. She is an appointment with Cardiology in 4 days. At this time she is taking aspirin she is had a fairly complete workup already. I will not adjust any of her medication at this point. I encouraged her to take her Xanax as prescribed to help her get some sleep. We also discussed warning signs such as a heart rate greater than 120 or stroke-like symptoms and when to return to the ER. She is certainly not a candidate for cardioversion she has paroxysmal AFib and is currently in sinus she is not anticoagulated either. Discharge Plan Departure Patient Disposition: Home Clinical Impression: Atrial fibrillation Instructions: DI for Atrial Fibrillation Activity Restrictions/Additional Instructions: *You have been diagnosed with atrial fibrillation *What to do: At this time I do recommend that you wear your watch at night to help monitor your heart rate. You will need to follow-up with cardiology they may increase your anticoagulation to something like Eliquis. If your heart rate is greater than 110 you were having dizziness lightheadedness severe chest pain numbness tingling weakness speech difficulty or any new or worsening symptoms return to the emergency department. *Continue to take medications as directed *Follow up with your primary care provider in 2-3 days or call [phone] Dr. Cortez as scheduled *Return to ER if you should have the above symptoms or any new, worsening or concerning symptoms Prescriptions: No Action Flovent Diskus 100 mcg/actuation blister with device 1 inh inhalation BID diltiazem HCl [Cardizem CD] 120 mg capsule,extended release 24hr 120 mg PO DAILY Qty: 30 0RF estradiol 0.01 % (0.1 mg/gram) cream 1 g VAGINAL Patient Comments: APPLY 1 GRAM IN THE VAGINA ONE TO THREE TIMES A WEEK NEEDED DIRECTED Estring 2 mg (7.5 mcg /24 hour) ring 1 VAGINAL Patient Comments: INSERT 1 RING VAGINALLY EVERY 3 MONTHS FOR HORMONE REPLACEMENT. REPLACE EVERY 3 MONTHS Referrals: Grey Cortez MD [Physician] - Stas Arnold MD [Primary Care Provider] - Stand Alone Forms: Patient Portal/API
[2022-10-23 11:00] VITALS: BP 143/66; PULSE 70; RESP 22; O2SAT 99
== END 2022-10-23 11:16 | disposition home or self-care (01) ==
PROVIDERS: Emergency Provider Emergency Medicine; PCP Family Medicine
DX: I48.91 Unspecified atrial fibrillation (principal); Z79.82 Long term (current) use of aspirin; Z20.822 Contact with and (suspected) exposure to COVID-19
CPT/HCPCS: 36415; 71045; 80053; 82550; 83690; 83735; 84484; 85025; 85610; 85730; 87635; 93005; 99284; C9803

== ENCOUNTER → 2023-03-18 08:28 | Outpatient (CLI) | payer MEDICARE, OTHER, SELFPAY ==
--- NOTE | 2023-03-18 | DI.MG.S_ITS ---
BILATERAL DIGITAL SCREENING MAMMOGRAM 3D/2D WITH CAD: 03/18/2023 CLINICAL: Routine screening. Comparison is made to exams dated: 05/05/2019 mammogram - [facility] and 01/14/2017 mammogram - [facility]. Both breasts are heterogeneously dense, which may obscure small masses (category c / 51-75% glandular tissue). Current study was also evaluated with a Computer Aided Detection (CAD) system. No significant masses, calcifications, or other findings are seen in either breast. There has been no significant interval change. IMPRESSION: NEGATIVE There is no mammographic evidence of malignancy. A 1 year screening mammogram is recommended. Based on the Tyrer Cuzick model (a risk assessment model) the patient's lifetime risk is 6.9% and her 10 year risk is 4.4%. According to the ACR, ACS, and NCCN guidelines, an annual breast MRI exam along with mammogram is recommended if the patient's lifetime risk is 20% or greater. This exam was interpreted at Station ID: [id number]. NOTE: For mammograms, a report in lay terms will be sent to the patient. Approximately 15% of breast malignancies will not be visualized mammographically. In the management of a palpable breast mass, a negative mammogram must not discourage biopsy of a clinically suspicious lesion. Electronically Signed By: Jordan jesus/philip:03/18/2023 11:07:05 letter sent: Normal Exam ACR BI-RADS Category 1: Negative 3341F
== END ==
PROVIDERS: PCP Family Medicine; Referring Provider Family Medicine; Visit Provider Family Medicine
DX: Z12.31 Encounter for screening mammogram for malignant neoplasm of breast (principal)
CPT/HCPCS: 77063; 77067

== ENCOUNTER 2023-08-18 12:18 | Emergency (ER) | payer MEDICARE, OTHER, SELFPAY ==
[2023-08-18] VITALS (35 sets, daily range): BP systolic 135–200; BP diastolic 59–96; PULSE 59–99; RESP 13–44; TEMP 36.3; O2SAT 88–100; BMI 25.0
--- NOTE | 2023-08-18 12:27 | DI.RAD.S_ITS ---
PROCEDURE: XR CHEST 1V INDICATIONS: chest pain TECHNIQUE: One view of the chest was acquired. COMPARISON: [facility], CR, XR CHEST 1V, 10/23/2022, 9:47. FINDINGS: Surgical changes and devices: None. Lungs and pleura: Lungs are clear. No pleural effusions or pneumothorax. Mediastinum: Mediastinal contours appear normal. Heart size is normal. Bones and chest wall: No suspicious bony lesions. Overlying soft tissues appear unremarkable. IMPRESSION: No acute pulmonary process. Dictated by: Michelle Leo M.D. on 08/18/2023 at 14:09 Approved by: Michelle Leo M.D. on 08/18/2023 at 14:10
--- NOTE | 2023-08-18 13:30 | ED_ITS ---
HPI - Arrhythmia/Palpitations General Chief Complaint: Arrhythmia/Palpitations Stated Complaint: sent by [employer] for Cardio Version Time Seen by Provider: 08/18/23 12:57 Source: patient Mode of arrival: Ambulatory History of Present Illness HPI narrative: 9-year-old female presents for atrial fibrillation. She stopped taking her flecainide several weeks ago due to side effects, but restarted flecainide and metoprolol 9 days ago after discussing with her sanitation worker cleaning machinery. She continues to be symptomatic with episodes of atrial fibrillation so she was counseled by her sanitation worker cleaning machinery to come to the ER for cardioversion. She has been compliant with all of her medications and her Eliquis. Related Data Home Medications Medication Instructions Recorded Confirmed fluticasone propionate 100 1 inh inhalation BID 09/30/21 10/23/22 mcg/actuation blister powder for inhalation (Flovent Diskus) estradiol 0.01% (0.1 mg/gram) 1 g vaginal 10/23/22 vaginal cream estradiol 2 mg (7.5 mcg/24 hour) 1 vaginal 10/23/22 vaginal ring (Estring) Previous Rx's Medication Instructions Recorded diltiazem HCl 120 mg 120 mg PO DAILY #30 caps 10/19/22 capsule,extended release 24 hr (Cardizem CD) Allergies Allergy/AdvReac Type Severity Reaction Status Date / Time No Known Drug Allergies Allergy Verified 10/23/22 09:47 Review of Systems Review of Systems Narrative: Negative except as noted above Patient History Social History Smoking Status: Never smoker Smoking Status: Never smoker alcohol intake frequency: other Substance Use Type: does not use Exam Initial Vital Signs Initial Vital Signs: Vital Signs Temperature 97.4 F L 08/18/23 12:22 Pulse Rate 90 08/18/23 12:22 Respiratory Rate 18 08/18/23 12:22 Blood Pressure 152/78 H 08/18/23 12:22 Pulse Oximetry 99 08/18/23 12:22 Oxygen Delivery Method Room Air 08/18/23 12:22 Const: Awake, alert, no acute distress, nontoxic appearing Cardiac: Irregularly irregular rhythm RESP: unlabored, clear bilaterally, no wheezing GI: Atraumatic, soft, nontender, nondistended, no rebound, no guarding MSK: Atraumatic, full range of motion, pulses equal Skin: Warm, Dry, intact, no rashes Neuro: AO x3, CN II-XII grossly intact, moves all extremities Psych: affect normal, mood normal, not suicidal, not homicidal Procedures Cardioversion Consent Signed: Yes Indication: Atrial fibrillation Stability: Stable Number of attempts (shocks): 1 Joules used: 100 Cardiac rhythm post-cardioversion: Normal sinus rhythm Procedural Sedation Consent signed: Yes Time out performed: Yes Indication: cardioversion ASA Class: II Mallampati Airway Classification: Class I Time of Last PO Intake: 12:00 Preparation: potline monitor applied, pulse oximeter, capnometry used, supplemental O2 applied, reversal agents at bedside, suction/airway equipment at bedside and IV secured IV Propofol dose (mg): 70 ED Sedation Level: Moderate (Concious) Patient Tolerated Procedure: Well and No complications Complications: none Course Course Course Narrative: Patient with persistent atrial fibrillation despite taking flecainide and metoprolol. She has been compliant with all of her medications and has not missed any doses. Laboratory work is reviewed, no electrolyte abnormalities that require correction. I discussed the patient's case with her sanitation worker cleaning machinery office through [facility]. They recommended decreasing the patient's flecainide to 50 mg twice daily and continuing patient's usual metoprolol 50 mg at night. Patient should continue to take Eliquis and they requested that the patient follow up in their office on Wednesday to check QTC with an EKG and their office. Patient underwent successful cardioversion and returned to normal sinus rhythm. She was advised of cardiology's recommendations and medication changes. Orders Ordered: Discontinued Medications Aspirin (Aspirin 81 Mg Chew Tab) 324 mg PO NOW ONE Stop: 08/18/23 12:28 Propofol (Propofol 200 Mg/20 Ml Vial) 100 mg IV NOW ONE Stop: 08/18/23 15:29 Last Admin: 08/18/23 15:50 Dose: 70 mg Documented By: MARTIN Vital Signs Vital signs: Vital Signs - 8 hr 08/18/23 12:22 08/18/23 13:23 08/18/23 13:30 Temperature 97.4 F L Pulse Rate 90 88 83 Respiratory Rate 18 27 H 29 H Blood Pressure 152/78 H Pulse Oximetry 99 99 99 Oxygen Delivery Method Room Air 08/18/23 13:30 08/18/23 13:54 08/18/23 13:54 Temperature Pulse Rate 94 H Respiratory Rate 20 Blood Pressure 148/76 H 157/71 H Pulse Oximetry 96 Oxygen Delivery Method 08/18/23 14:00 08/18/23 14:00 08/18/23 14:30 Temperature Pulse Rate 71 74 Respiratory Rate 19 24 Blood Pressure 156/70 H Pulse Oximetry 99 100 Oxygen Delivery Method 08/18/23 14:31 08/18/23 14:31 Temperature Pulse Rate 73 Respiratory Rate 17 Blood Pressure 141/63 H Pulse Oximetry 100 Oxygen Delivery Method MDM - Arrhythmia/Palpitations Differential Diagnosis Differential diagnosis: Likely palpitations, artial fibrillation and supraventricular tachycardia Lab Data 08/18/23 13:15 08/18/23 13:15 Labs: Lab Results 08/18/23 Range/Units 13:15 WBC 5.6 (4.5-11.0) X10^3/uL RBC 4.25 (4.0-5.2) X10^6/uL Hgb 13.8 (12.0-16.0) g/dL Hct 41.3 (36-46) % MCV 97.2 (80-100) fL MCH 32.4 (26-34) PG MCHC 33.3 (30-36) % RDW 13.7 (11.6-14.8) % Plt Count 185 (150-400) X10^3/uL Neut % (Auto) 60.7 (50-75) % Lymph % (Auto) 26.8 (25-40) % [place] % (Auto) 9.6 (3-14) % Eos % (Auto) 2.1 (2-4) % Baso % (Auto) 0.8 (0-2) % Neut # (Auto) 3400 (9708-9445) /uL Lymph # (Auto) 1500 (5235-8795) /uL [place] # (Auto) 500 (0-900) /uL Eos # (Auto) 100 (0-450) /uL Baso # (Auto) 0 (0-100) /uL PT 16.3 H (9.4-12.5) SECONDS INR 1.4 H (0.9-1.3) APTT 37 H (25.1-36.5) SECONDS Sodium 139 (137-145) mmol/L Potassium 4.3 (3.4-5.1) mmol/L Chloride 109 H (98-107) mmol/L Carbon Dioxide 23 (22-32) mmol/L BUN 19 H (7-17) mg/dL Creatinine 0.99 (0.52-1.04) mg/dL Estimated GFR > 60 (>60) mL/min BUN/Creatinine Ratio 19.2 (6-22) Glucose 104 (80-110) mg/dL Calcium 9.5 (8.4-10.2) mg/dL Magnesium 2.0 (1.6-2.3) mg/dL Total Bilirubin 0.6 (0.2-1.3) mg/dL AST 29 (14-36) IU/L ALT 46 H (<35) IU/L Alkaline Phosphatase 51 (38-126) U/L Total Creatine Kinase 46 (30-135) U/L Troponin I < 0.012 (0.01-0.034) ng/mL Total Protein 7.4 (6.3-8.2) g/dL Albumin 4.3 (3.5-5.0) g/dL Globulin 3.1 (1.7-4.1) g/dL Albumin/Globulin Ratio 1.4 (1.0-2.8) Lipase 107 (23-300) U/L Point of Care Testing Test Results Not applicable Discharge Plan Departure Patient Disposition: Home Clinical Impression: Atrial fibrillation Instructions: DI for Atrial Fibrillation, DI for Moderate Sedation Activity Restrictions/Additional Instructions: The sanitation worker cleaning machinery at your sanitation worker cleaning machinery's office recommends decreasing her flecainide to 50 mg twice daily. You may keep the same dose of the metoprolol. They want to see you in their office on Wednesday for an EKG to monitor any changes that may occur from the medication changes. Prescriptions: No Action Flovent Diskus 100 mcg/actuation blister with device 1 inh inhalation BID diltiazem HCl [Cardizem CD] 120 mg capsule,extended release 24hr 120 mg PO DAILY Qty: 30 0RF estradiol 0.01 % (0.1 mg/gram) cream 1 g VAGINAL Patient Comments: APPLY 1 GRAM IN THE VAGINA ONE TO THREE TIMES A WEEK NEEDED DIRECTED Estring 2 mg (7.5 mcg /24 hour) ring 1 VAGINAL Patient Comments: INSERT 1 RING VAGINALLY EVERY 3 MONTHS FOR HORMONE REPLACEMENT. REPLACE EVERY 3 MONTHS Referrals: Stas Arnold MD [Primary Care Provider] - Stand Alone Forms: Patient Portal/API
[2023-08-18 13:34] LABS: Add Manual Diff / Slide Review NO; Basophils Absolute Auto 0 /uL (0-100); Basophils Percent Auto 0.8 % (0-2); Eosinophils Absolute Auto 100 /uL (0-450); Eosinophils Percent Auto 2.1 % (2-4); Hematocrit 41.3 % (36-46); Hemoglobin 13.8 g/dL (12.0-16.0); Lymphocytes Absolute Auto 1500 /uL (1100-4500); Lymphocytes Percent Auto 26.8 % (25-40); Mean Corpuscular HGB Conc 33.3 % (30-36); Mean Corpuscular Hemoglobin 32.4 PG (26-34); Mean Corpuscular Volume 97.2 fL (80-100); Monocytes Absolute Auto 500 /uL (0-900); Monocytes Percent Auto 9.6 % (3-14); Neutrophils Absolute Auto 3400 /uL (1500-7000); Neutrophils Percent Auto 60.7 % (50-75); Platelet Count 185 X10^3/uL (150-400); Red Blood Cell Count 4.25 X10^6/uL (4.0-5.2); Red Cell Distribution Width 13.7 % (11.6-14.8); White Blood Cell Count 5.6 X10^3/uL (4.5-11.0)
[2023-08-18 13:41] LABS: INR 1.4 (0.9-1.3); Prothrombin Time 16.3 SECONDS (9.4-12.5)
[2023-08-18 13:44] LABS: PTT Partial Thromboplastin Tim 37 SECONDS (25.1-36.5)
[2023-08-18 13:46] LABS: Alanine Aminotransferase 46 IU/L (<35); Albumin 4.3 g/dL (3.5-5.0); Albumin Globulin Ratio 1.4 (1.0-2.8); Alkaline Phosphatase 51 U/L (38-126); Aspartate Aminotransferase 29 IU/L (14-36); BUN Creatinine Ratio 19.2 (6-22); Bilirubin Total 0.6 mg/dL (0.2-1.3); Blood Urea Nitrogen 19 mg/dL (7-17); Calcium 9.5 mg/dL (8.4-10.2); Carbon Dioxide 23 mmol/L (22-32); Chloride 109 mmol/L (98-107); Creatine Kinase 46 U/L (30-135); Estimated Glomerular Filt Rate > 60 mL/min (>60); Globulin 3.1 g/dL (1.7-4.1); Glucose 104 mg/dL (80-110); HEMOLYSIS < 15 (0-50); Lipase 107 U/L (23-300); Potassium 4.3 mmol/L (3.4-5.1); Sodium 139 mmol/L (137-145); Total Protein 7.4 g/dL (6.3-8.2)
[2023-08-18 13:57] LABS: Troponin I < 0.012 ng/mL (0.01-0.034)
[2023-08-18] MEDS: propofoL 200 MG/20 ML VIAL 100 MG IV (15:50)
--- NOTE | 2023-08-18 16:22 | RT ---
At bedside for PRS for Cardioversion. Bag mask unit at [facility] with suction functional. Pt flaco well, on 3 lpm nc and no distress noted, roll applied under shoulders. Pt alert post procedure and released by Rn
== END 2023-08-18 16:39 | disposition home or self-care (01) ==
PROVIDERS: Emergency Provider Emergency Medicine; PCP Family Medicine
DX: I48.91 Unspecified atrial fibrillation (principal); R07.9 Chest pain, unspecified
CPT/HCPCS: 36415; 71045; 80053; 82550; 83690; 83735; 84484; 85025; 85610; 85730; 92960; 93005; 99152; 99285; J2704

== ENCOUNTER → 2023-09-29 10:17 | Outpatient (CLI) | payer MEDICARE, OTHER, SELFPAY ==
[2023-09-29 11:26] LABS: Hematocrit 42.1 % (36-46); Hemoglobin 14.2 g/dL (12.0-16.0); Mean Corpuscular HGB Conc 33.7 % (30-36); Mean Corpuscular Hemoglobin 32.3 PG (26-34); Mean Corpuscular Volume 95.9 fL (80-100); Platelet Count 199 X10^3/uL (150-400); Red Blood Cell Count 4.39 X10^6/uL (4.0-5.2); Red Cell Distribution Width 13.1 % (11.6-14.8); White Blood Cell Count 4.3 X10^3/uL (4.5-11.0)
[2023-09-29 11:43] LABS: Alanine Aminotransferase 33 IU/L (<35); Albumin 4.1 g/dL (3.5-5.0); Albumin Globulin Ratio 1.4 (1.0-2.8); Alkaline Phosphatase 51 U/L (38-126); Aspartate Aminotransferase 34 IU/L (14-36); BUN Creatinine Ratio 18.5 (6-22); Bilirubin Total 0.8 mg/dL (0.2-1.3); Blood Urea Nitrogen 17 mg/dL (7-17); Calcium 9.3 mg/dL (8.4-10.2); Carbon Dioxide 25 mmol/L (22-32); Chloride 112 mmol/L (98-107); Estimated Glomerular Filt Rate > 60 mL/min (>60); Glucose 90 mg/dL (80-110); HEMOLYSIS < 15 (0-50); Sodium 141 mmol/L (137-145); Total Protein 7.1 g/dL (6.3-8.2)
== END ==
PROVIDERS: PCP Family Medicine; Referring Provider Nurse Practitioner; Visit Provider Nurse Practitioner
DX: I95.9 Hypotension, unspecified (principal)
CPT/HCPCS: 36415; 80053; 85027

== ENCOUNTER → 2024-06-15 11:24 | Outpatient (CLI) | payer MEDICARE, OTHER, SELFPAY ==
--- NOTE | 2024-06-15 11:26 | DI.RAD.S_ITS ---
PROCEDURE: XR SHOULDER LT MIN 2V INDICATIONS: Pain in left shoulder TECHNIQUE: 3 views of the shoulder were acquired. COMPARISON: None. FINDINGS: Bones: No fractures or dislocations. No suspicious bony lesions. Mild degenerative changes. Visualized ribs appear intact. Soft tissues: No suspicious soft tissue calcifications. IMPRESSION: Mild left shoulder DJD. Dictated by: Jordan Fisher M.D. on 06/15/2024 at 22:06 Approved by: Jordan Fisher M.D. on 06/15/2024 at 22:07
== END ==
PROVIDERS: PCP Family Medicine; Referring Provider Family Medicine; Visit Provider Family Medicine
DX: M19.012 Primary osteoarthritis, left shoulder (principal); M25.512 Pain in left shoulder
CPT/HCPCS: 73030